=== PATIENT | female | born 1950 | race Caucasian/White ===

== ENCOUNTER 2022-10-05 19:35 | Emergency (ER) | payer MEDICARE, OTHER ==
[~2022-10-05] VITALS: Ht 162.6 cm; Wt 59.1 kg
[2022-10-05 20:16] VITALS: TEMP 98.7
[2022-10-05 21:26] LABS: EOSINOPHILS % (AUTO) 1.2 % (1.0-6.0); HEMATOCRIT 41.3 % (36-46); HEMOGLOBIN 13.1 g/dL (12.0-16.0); LYMPHOCYTES # (AUTO) 2.9 K/uL (1.0-4.8); LYMPHOCYTES % (AUTO) 34.4 % (22.0-44.0); MEAN CORPUSCULAR HEMOGLOBIN 26.8 pg (26.0-34.0); MEAN CORPUSCULAR HGB CONC 31.8 G/dL (31.0-37.0); MEAN CORPUSCULAR VOLUME 84 fL (80-100); MONOCYTES # (AUTO) 0.7 K/uL (0.1-1.0); MONOCYTES % (AUTO) 8.3 % (2.0-9.0); NEUTROPHILS # (AUTO) 4.7 K/uL (1.8-7.7); NEUTROPHILS % (AUTO) 55.1 % (40.0-70.0); PLATELET COUNT (AUTO) 240 K/uL (150-450)
[2022-10-05 21:33] LABS: ANION GAP 16 mmol/L (8-16); CALCIUM, TOTAL 9.2 mg/dL (8.8-10.5); CARBON DIOXIDE 20 mmol/L (22-29); CHLORIDE 96 mmol/L (98-107); GLOMERULAR FILTR. RATE CALC > 60 mL/min (>60); GLUCOSE,RANDOM 101 mg/dL (70-110); POTASSIUM 3.6 mmol/L (3.5-5.1); SODIUM SERUM 132 mmol/L (136-145)
[2022-10-05 21:39] LABS: ALANINE AMINOTRANSFERASE 10 U/L (12-78); ALBUMIN 3.5 g/dL (3.4-5.0); ALKALINE PHOSPHATASE 118 U/L (46-116); ASPARTATE AMINOTRANSFERASE 17 U/L (15-37); BILIRUBIN,TOTAL 0.3 mg/dL (0.1-1.0); LIPASE 135 U/L (73-393); TOTAL PROTEIN, SERUM 7.1 g/dL (6.4-8.2)
[2022-10-05] MEDS ORDERED: ALBUTEROL SULFATE 2.5 MG/0.5 ML NEB SOLUTION NEB ONE (22:15)
[2022-10-05] MEDS ORDERED: IPRATROPIUM BROMIDE 0.5 MG/2.5 ML NEB SOLUTION NEB ONE (22:15)
[2022-10-05] MEDS ORDERED: KETOROLAC TROMETHAMINE 30 MG/ML VIAL IVP ONE (22:15)
[2022-10-05 22:19] LABS: CREATINE KINASE, TOTAL ONLY 73 U/L (26-192)
[2022-10-05] MEDS ORDERED: METO-408 PO (22:21)
[2022-10-05] MEDS ORDERED: LOSA-382 PO (22:21)
[2022-10-05 22:35] VITALS: PULSE 75; RESP 22; O2SAT 95
[2022-10-05 22:50] VITALS: PULSE 85; RESP 20; O2SAT 99
[2022-10-05] MEDS ORDERED: FentaNYL CITRATE PF 100 MCG/2 ML VIAL IVP ONE (23:00)
[2022-10-06] MEDS ORDERED: ONDA-104 PO (00:14)
[2022-10-06] MEDS ORDERED: DIPH-654 PO (00:14)
[2022-10-06 00:32] VITALS: BP 155/92; PULSE 73; RESP 17
== END 2022-10-06 01:14 | disposition home or self-care (01) ==
LOC: EMS 19:35
DX: R19.7 Diarrhea, unspecified (principal); R10.84 Generalized abdominal pain; R11.2 Nausea with vomiting, unspecified; J44.9 Chronic obstructive pulmonary disease, unspecified; F17.210 Nicotine dependence, cigarettes, uncomplicated; I10 Essential (primary) hypertension
CPT/HCPCS: 99285; 74176; 96374; 71045; 96375; 80053; 82550; 83690; 83880; 84484; 85025; 36415; 94640; 93005; J3010; J1885; J7613